=== PATIENT | male | born 1980 | race Caucasian/White ===

== ENCOUNTER 2024-08-27 17:18 | Emergency (ER) | payer BC, SELFPAY ==
--- OUTSIDE RECORDS SUMMARY | 2024-08-27 17:20 | XMS_ITS | Clinical Summary ---
Author Organization [facility] Address [facility] [place] [address] Care Team Providers Care Exterminator Helper Name Role Phone Unavailable Primary Care Provider Unavailabl e Social History Tobacco Use Types Packs/Day Years Used Date Smoking Tobacco: Never Assessed Sex and Gender Information Value Date Recorded Sex Assigned at Not on file Legal Sex Male 4:16 PM CDT Gender Identity Not on file Sexual Orientation Not on file Plan of Treatment Health Maintenance Due Date Last Done Comments Colorectal Cancer Screening Colonoscopy (10 Years) 1978 Annual Physical 1981 Hepatitis C 1996 DTaP, Tdap and Td Vaccines ( 1 - Tdap) 1997 Hepatitis B Vaccines (1 of 3 - 19+ 3-dose series) 1997 COVID-19 Vaccine (2023-2 5 season) 2024 HPV Vaccines Aged Out No longer eligi ble based on patient's age to complete this topic Meningococcal B Vaccine Aged Out No l onger eligible based on patient's age to complete this topic Meningococcal Vaccine Aged Out No michael saida eligible based on patient's age to complete this topic Pneumococcal Vaccine: Pediat rics (0 to 5 Years) and At-Risk Patients (6 to 49 Years) Aged Out No longer eligible b ased on patient's age to complete this topic RSV Immunizations Under 20 Months Aged Out No longer eligible based on patient's age to complete this topic
--- OUTSIDE RECORDS SUMMARY | 2024-08-27 17:20 | XMS_ITS | Continuity of Care Document ---
Author Organization [facility] Address [address] [place] [address] [place] [address] Phone Care Team Providers Care Shear Helper Name Role Phone Thaddeus Connor MD Unavailable Unavailable Allergies, Adverse Reactions, Alerts Substance Reaction Status Criticality No Known Allergies Active No Inform ation Medications Medication Instructions Dosage Effective Dates (start - stop) Status Comments Polytrim 10,000 unit-1 mg/mL eye drops Instill one drop into right eye four times a day for 5 days - Active Procedures Procedure Date Office/outpatient Visit, Est Remove Foreign Body Eye External, Cornea l With Slit Lamp Fitting Of Cont Lns For Treat Of Ocular Surf Disea Advance Directives Directive Yes / No Effective Date File Name No Information Encounters Encounter Description Practice Location Reason(s) For Visit Diagnoses Date Provider Providers Copied on Encounter Office/outpa tient Visit, Est [facility], [address] [place] [address] [address], [place], [place], [id number], [place] tel:[phone] [facility] Professional 1 week f/u and BCL removal (chief complaint) Abrasion of right cornea, subsequent encounter 3 Nikolas Travis. [address] [facility] [address], [place], [place], [id number], [place]. tel:[phone] Referring Provider: Meena Spence, [address], [place], [address]. tel:[phone] [facility], [address] [place] [address] [address], [place], [place], [id number], [place] tel:[phone] [facility] Professional WIE (chief complaint) Foreign body of right cornea, initial encounterAbras ion of right cornea, initial encounter 3 Nikolas Travis. [address] [facility], [address], [place], [place], [id number], [place]. tel:[phone] Referring Provider: Meena Lyle OD J, [address] [place], [address]. tel:[phone] Family History Family Member Type Diagnosis Age At Onset No Information Payers Payer name Insurance type Covered democrat ID Authoriza tion(s) No Information Social History Type Description Quantity Date Captured Comments Alcohol Use Details Caffeine Use Details Tobacco Use Status Heavy cigarette smok er (20-39 cigs/day) Smoking Status Heavy tobacco smoker Smoking Tobacco Use Details Cigarette: No Details Available Cigarette: 1 Packs per day Sex Male Chief Complaint And Reason For Visit From encounter dated '09/03/2022 10:45'. 1 week f/u and BCL removal (chief complaint). Description: The 41 year old patient presents for evaluation of 1 week f/u and BCL removal in the right eye. Patient states the right eye is still a little irritated but better. 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 Reason For Referral Reason For Referral No Information Plan Of Treatment Date Type Action Status Goal Tobacco cessation counseling completed Goal Tobacco cessation counseling completed Patient Education Feeling of an Object in the Eye: Care Instructions completed History Of Present Illness Encounter Date Complaint History Of Prese nt Illness 1 week f/u and BCL removal The 2 3 year old patient presents for evaluation of 1 week f/u and BCL removal in the right eye. Patient states the right eye is still a little irritated but better. 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 WIE The 41 year old patient presents for evaluation of WIE in the right eye. Patient states he has a piece of metal in his right eye happened sometime yesterday and does not know what he was doing at the time. Patient states eye is hurting, tearing, and red. Patient does not have a PCP Functional Status Date Functional Assessmen t No Information Instructions Date Instruction Additional Infor ksenia Impression/Plan Impression/Plan Assessments Type Assessment Date assessment Abrasion of right cornea, subseq uent encounter Patient Care Teams Name Effective Dates (start - stop) Status Members No Information
[2024-08-27 17:24] VITALS: BP 152/99; PULSE 94; RESP 24; TEMP 36.3; O2SAT 98
--- OUTSIDE RECORDS SUMMARY | 2024-08-27 17:24 | XMS_ITS | Continuity of Care Document ---
Author Organization [facility] Address [address] [place] [address] [place] [address] Phone Care Team Providers Care Distributor Sales Consultant Name Role Phone Thaddeus Connor MD Unavailable [...] Copied on Encounter Office/outpa tient Visit, Est [facility], [address] [place] [address] [address], [place], [place], [id number], [place] tel:[phone] [facility] Professional 1 week f/u and BCL removal (chief complaint) Abrasion of right cornea, subsequent encounter 3 Nikolas Travis. [address] [facility] [address], [place], [place], [id number], [place]. tel:[phone] Referring Provider: Meena Spence, [address], [place], [address]. tel:[phone] [facility], [address] [place] [address] [address], [place], [place], [id number], [place] tel:[phone] [facility] Professional WIE (chief complaint) Foreign body of right cornea, initial encounterAbras ion of right cornea, initial encounter 3 Nikolas Travis. [address] [facility], [address], [place], [place], [address], [place]. tel:[phone] Referring Provider: Meena Lyle OD J, [address] [place], [address]. tel:[phone] Family History Family Member Type Diagnosis Age At Onset No Information Payers Payer name Insurance type Covered green party ID Authoriza tion(s) No Information Social History [...]
--- NOTE | 2024-08-27 17:26 | ED_ITS ---
HPI - Eye Problem General Chief complaint: Eye Problems Stated complaint: something in his eye Time Seen by Provider: 08/27/24 17:19 Source: patient Mode of arrival: ambulatory Limitations: no limitations History of Present Illness HPI Narrative: Tra is a 43-year-old male patient presenting to the clinic with complaints of possibly something in his eye. He reports his symptoms started yesterday. He denies any known foreign body going into his eye. States he may have a chemical or foreign body in his eye. Noticed some drainage from the eye this morning with some crusting. Feels as though there may be something up in his upper eyelid. Visual acuity was obtained. Vision in the right eye was 20 50 Related Data Allergies Allergy/AdvReac Type Severity Reaction Status Date / Time No Known Allergies Allergy Unverified 08/27/24 17:52 Review of Systems Review of Systems: Pertinent positives per HPI. Patient denies any fever, chills, rash, headache, visual changes, dizziness, cough, runny nose, sore throat, shortness of breath, chest pain, palpitations, nausea, vomiting, diarrhea, constipation, abdominal pain, or any urinary issues. [facility] Family History Family History Father Family history of diabetes mellitus in first degree relative Social History Social History Smoking status: Current every day smoker Alcohol intake: current Comments At the time of my signature, I reviewed and agree with the nursing past medical, surgical, social, and family history. There is no relevant family history pertinent to the patient complaint. Exam Narrative: General: Well-developed, well nourished, in no apparent distress Head: Normocephalic, atraumatic Eyes: Pupils equally round and reactive to light bilaterally, EOM intact, right sclera and conjunctive injected, clear discharge, lids normal Ears: TMs intact and clear, ear canals clear, no drainage, grossly hearing normal. Nose: Nares patent, no discharge, no inflammation, no sinus tenderness. Mouth: Oropharynx without lesions or masses, good dentition, MMM. Neck: Supple, trachea midline, no enlargement of anterior or posterior cervical nodes, no thyroid masses or goiter palpable. Cardio: Regular rate and rhythm, s1 and s2 normal, no murmur appreciated. Resp: Clear to auscultation bilaterally anteriorly and posteriorly, no rhonchi, rales, wheezing or rubs Course Course Emergency Course: Portions of this record may have been created with voice recognition software. Level of Care: Express Care Visit Vital Signs Vital signs: Vital Signs Temperature 36.3 C L 08/27/24 17:24 Pulse Rate 94 08/27/24 17:24 Respiratory Rate 24 H 08/27/24 17:24 Blood Pressure 152/99 H 08/27/24 17:24 Pulse Oximetry 98 08/27/24 17:24 Oxygen Delivery Room Air 08/27/24 17:24 Temperature 36.3 C L 08/27/24 17:24 Pulse Rate 94 08/27/24 17:24 Respiratory Rate 24 H 08/27/24 17:24 Blood Pressure 152/99 H 08/27/24 17:24 Pulse Oximetry 98 08/27/24 17:24 Oxygen Delivery Room Air 08/27/24 17:24 Vital signs reviewed Procedures Other Procedure Procedure 1: Other Procedure: Two drops of tetracaine opical anesthetic was instilled with good anesthesia. Fluorescein stain of the right eye was performed without uptake of dye. No epithelial defect was noted. NO FB, ulcer or dendritic lesions. Upper lid was everted and no FB or lesions were noted. NO Tod sign. Normal saline irrigation eye solution was performed and the patient tolerated the procedure well, no adverse reaction or complications. readings. MDM - Eye Problem MDM Narrative Medical decision making narrative: At the time of visit patient is resting comfortably on the exam table. Patient appears to be nontoxic. Procedures: Wood's lamp exam was performed and shows no sign of corneal abrasion, foreign body, or Tod sign. I suspect patient has right eye irritation. No obvious foreign body was seen. Wood's lamp exam was performed and no sign of corneal abrasion. To wet cotton- tipped applicators were used to victor hugo over the upper and lower eyelid. Supportive measures were discussed with the patient and they voiced understanding discharge instructions and agrees to treatment plan. Return precautions reviewed Differential Diagnosis Differential diagnosis: Likely corneal abrasion, conjunctivitis, acute iritis, hyphema, periorbital cellulitis, subconjunctival hemorrhage, glaucoma, corneal ulcer and ruptured globe Discharge Plan Discharge Clinical Impression: Irritation of right eye Patient Disposition: Home Condition: Stable Instructions: Antibiotic Form, Conjunctivitis (ED) Additional Instructions: Practice good hand washing techniques Avoid touching eyes Instill eyedrops as prescribed-ofloxacin May use warm moist washcloth to help remove eye discharge If eyes are matted shut-do not pry eyes open-use a warm moist cloth to loosen matting and wipe matter away from eye May take Tylenol/Motrin as needed for pain or fever May take Benadryl as needed for itching Follow-up with your PCP in 3-5 days if symptoms persist or sooner if they worsen Go to the emergency room if you develop any fever that is not controlled by Tylenol or Motrin, loss of vision, eye pain, increase eye swelling,visual changes, headache, confusion, lethargy, weakness, chest pain, or shortness of breath. Patient Language: Russian Prescriptions: New ofloxacin 0.3 % drops 1 drp EACH EYE QID 7 Days Qty: 5 0RF Follow-up/Referrals: UNKNOWN,DOCTOR [Primary Care Provider] - Time of Disposition: 17:52 Quality NIHSS Nursing Documentation ED NIHSS nursing documentation: reviewed/agree
[2024-08-27] MEDS: TETRACAINE HCL 0.5% OPHTH SOLN 4 ML BTL RIGHT EYE (17:39)
[2024-08-27] MEDS: FLUORESCEIN SOD 1 MG/STRIP RIGHT EYE (17:39)
[2024-08-27] MEDS: DACRIOSE EYE IRRIGATION 118 ML BOTTLE RIGHT EYE (17:39)
== END 2024-08-27 18:00 | disposition home or self-care (01) ==
PROVIDERS: Emergency Provider Nurse Practitioner Family
DX: H57.11 Ocular pain, right eye (principal); F17.200 Nicotine dependence, unspecified, uncomplicated
CPT/HCPCS: 99213; A9270; G0463